=== PATIENT | male | born 1960 | race Caucasian/White ===

== ENCOUNTER → 2022-01-21 08:57 | Outpatient (BNVA) | payer MEDICARE, BC, SELFPAY | PROVIDERS: Visit Provider Family Medicine | DX: Z00.00 Encounter for general adult medical examination without abnormal findings (principal); R03.0 Elevated blood-pressure reading, without diagnosis of hypertension; G43.909 Migraine, unspecified, not intractable, without status migrainosus | CPT/HCPCS: 80053; 80061 ==

== ENCOUNTER → 2022-11-01 13:35 | Outpatient (BNVA) | payer MEDICARE, BC, SELFPAY | PROVIDERS: PCP Family Medicine; Visit Provider Family Medicine | DX: E03.9 Hypothyroidism, unspecified (principal); M25.50 Pain in unspecified joint; M79.10 Myalgia, unspecified site; R53.83 Other fatigue; M19.90 Unspecified osteoarthritis, unspecified site | CPT/HCPCS: 80053; 85025; 85651; 86140; 86160; 86162; 86235; 86255; 86376; 86431 ==

== ENCOUNTER → 2023-01-31 11:43 | Outpatient (BNVA) | payer MEDICARE, BC, SELFPAY | PROVIDERS: PCP Family Medicine; Visit Provider Nurse Practitioner Family | DX: M79.674 Pain in right toe(s) (principal); M79.89 Other specified soft tissue disorders | CPT/HCPCS: 73630; 85025 ==

== ENCOUNTER → 2023-05-11 10:25 | Outpatient (BNVA) | payer MEDICARE, BC, SELFPAY | PROVIDERS: PCP Family Medicine; Visit Provider Family Medicine | DX: H92.09 Otalgia, unspecified ear (principal); R76.8 Other specified abnormal immunological findings in serum; R73.9 Hyperglycemia, unspecified; M19.90 Unspecified osteoarthritis, unspecified site; E03.9 Hypothyroidism, unspecified; R03.0 Elevated blood-pressure reading, without diagnosis of hypertension | CPT/HCPCS: 80053; 83036; 85025; 85651; 86140 ==

== ENCOUNTER 2023-06-16 09:35 | Outpatient (CLI) | payer MEDICARE, BC, SELFPAY ==
--- NOTE | 2023-06-16 09:40 | CT_ITS ---
WS: [id number] CT NECK WITH CONTRAST HISTORY: TINNITUS,BILATERAL/SENSORINEURAL HEARING LOSS,BILATERAL TECHNIQUE: Contiguous 2 mm axial images are performed through the neck with intravenous contrast. Sag ittal and coronal reformats are also submitted. All CT scans at [facility] use at least one o f these dose optimization techniques: automated exposure control; mA and/or kV adjustment per patient size (includes targeted exams where dose is matched to clinical indication); or iterative reconstruc tion. CONTRAST: CONTRAST: Omnipaque 350; 100 mL IV. DLP: 357.88 mGy COMPARISON: None available. Nasopharynx, oropharynx, hypopharynx and larynx are unremarkable. No soft tissue masses or abnormal e nhancement. Torus tubarius and fossa of Rosenmuller and parapharyngeal fat are normal. No significant lymphadenopathy is identified. Thyroid gland and salivary glands are normally enhancing with no masses. Anterior cervical fusion at C5-6 with interbody spacer. Fusion appears normal. Mild bilateral foramin al stenosis at C5-6. Visualized portions of the skull base demonstrate no abnormalities. Orbits and globes are within norm al limits. No soft tissue masses. No fluid or soft tissue in the mastoid air cells. There is no significant amount of soft tissue in th e internal or external auditory canals. There is no significant soft tissue surrounding the inner ear ossicles. Neither tympanic membrane is well visualized on this neck CT. Lung apices are clear. IMPRESSION: 1. Unremarkable neck CT. No enhancing masses or adenopathy. 2. Normal mastoid air cells. 3. No soft tissue in the internal or external auditory canals. Temporal bone CT may be of benefit to better evaluate the middle ear.
[2023-06-16 11:04] LABS: Blood Urea Nitrogen 18 mg/dL (8-23); Glomerular Filtration Rate 51.2 mL/min (90-130)
[2023-06-16] MEDS: iohexol 350 mg/mL 500 mL Btl (per mL) IV (11:04)
== END 2023-06-16 09:36 | disposition home or self-care (01) ==
LOC: RAD 09:36
PROVIDERS: PCP Family Medicine; Visit Provider Specialist
DX: H66.001 Acute suppurative otitis media without spontaneous rupture of ear drum, right ear (principal); H72.01 Central perforation of tympanic membrane, right ear; H93.13 Tinnitus, bilateral
CPT/HCPCS: 70491; 82565; 84520; Q9967

== ENCOUNTER → 2023-07-25 09:11 | Outpatient (BNVA) | payer MEDICARE, BC, SELFPAY | PROVIDERS: PCP Family Medicine; Visit Provider Family Medicine | DX: R76.8 Other specified abnormal immunological findings in serum (principal); Z79.899 Other long term (current) drug therapy; R79.89 Other specified abnormal findings of blood chemistry; R53.83 Other fatigue | CPT/HCPCS: 80053; 82040; 84270; 84403; 85025; 86480; 86705; 86706; 86709; 86803; 87340 ==

== ENCOUNTER → 2023-08-18 10:24 | Outpatient (BNVA) | payer MEDICARE, BC, SELFPAY | PROVIDERS: PCP Family Medicine; Visit Provider Family Medicine | DX: R79.89 Other specified abnormal findings of blood chemistry (principal); R76.8 Other specified abnormal immunological findings in serum; M25.50 Pain in unspecified joint; M79.10 Myalgia, unspecified site; R53.83 Other fatigue; R21 Rash and other nonspecific skin eruption | CPT/HCPCS: 82040; 84270; 84403 ==

== ENCOUNTER → 2023-11-24 10:53 | Outpatient (BNVA) | payer MEDICARE, BC, SELFPAY | PROVIDERS: PCP Family Medicine; Visit Provider Family Medicine | DX: Z79.899 Other long term (current) drug therapy (principal); R79.89 Other specified abnormal findings of blood chemistry; R76.8 Other specified abnormal immunological findings in serum; R21 Rash and other nonspecific skin eruption; R53.83 Other fatigue | CPT/HCPCS: 80053; 82040; 83036; 84270; 84403; 85025 ==

== ENCOUNTER → 2023-12-25 11:46 | Outpatient (BNVA) | payer MEDICARE, BC, SELFPAY | PROVIDERS: PCP Family Medicine; Visit Provider Family Medicine | DX: R53.83 Other fatigue (principal); R21 Rash and other nonspecific skin eruption; M25.50 Pain in unspecified joint; R76.8 Other specified abnormal immunological findings in serum | CPT/HCPCS: 86618; 86666; 86757 ==

== ENCOUNTER → 2024-01-29 11:51 | Outpatient (BNVA) | payer MEDICARE, BC, SELFPAY | PROVIDERS: PCP Family Medicine; Visit Provider Family Medicine | DX: E03.9 Hypothyroidism, unspecified (principal); R03.0 Elevated blood-pressure reading, without diagnosis of hypertension; R76.8 Other specified abnormal immunological findings in serum; R42 Dizziness and giddiness; R53.83 Other fatigue; M19.90 Unspecified osteoarthritis, unspecified site | CPT/HCPCS: 80053; 84443; 85025; 85651; 86140; 86618; 86666; 86757 ==

== ENCOUNTER → 2025-02-10 10:24 | Outpatient (BNVA) | payer MEDICARE, BC, SELFPAY | PROVIDERS: PCP Family Medicine; Visit Provider Family Medicine | DX: R03.0 Elevated blood-pressure reading, without diagnosis of hypertension (principal); R76.89 Other specified abnormal immunological findings in serum; R53.83 Other fatigue; Z00.00 Encounter for general adult medical examination without abnormal findings; R73.03 Prediabetes; Z79.899 Other long term (current) drug therapy; E03.9 Hypothyroidism, unspecified | CPT/HCPCS: 80053; 80061; 82040; 82306; 83036; 84270; 84403; 84443; 85025; 86140 ==